=== PATIENT | male | born 1940 | race Caucasian/White ===

== ENCOUNTER 2024-03-11 10:24 | Emergency (ER) | payer MEDICARE, BC ==
[~2024-03-11] VITALS: Ht 170.2 cm; Wt 54.4 kg
[2024-03-11] MEDS: NEOMY/BACITRA/POLYMYXIN B OINT UD PACKET TP ONE (10:59)
[2024-03-11] MEDS ORDERED: NEOMY/BACITRA/POLYMYXIN B OINT UD PACKET TP ONE (10:59)
[2024-03-11 11:23] VITALS: BP 132/68; TEMP 98; O2SAT 98
== END 2024-03-11 11:25 | disposition home or self-care (01) ==
LOC: ER 10:24
DX: S51.011A Laceration without foreign body of right elbow, initial encounter (principal); S51.811A Laceration without foreign body of right forearm, initial encounter; Z60.2 Problems related to living alone; W01.0XXA Fall on same level from slipping, tripping and stumbling without subsequent striking against object, initial encounter; Y93.89 Activity, other specified; Y92.89 Other specified places as the place of occurrence of the external cause; Y99.8 Other external cause status
CPT/HCPCS: A4606; A4663

== ENCOUNTER 2024-03-13 08:01 | Emergency (ER) | payer MEDICARE, BC ==
[~2024-03-13] VITALS: Ht 170.2 cm; Wt 54.4 kg
[2024-03-13 08:05] VITALS: O2SAT 100
== END 2024-03-13 08:23 | disposition home or self-care (01) ==
LOC: ER 08:01
DX: S51.011A Laceration without foreign body of right elbow, initial encounter (principal); W01.0XXA Fall on same level from slipping, tripping and stumbling without subsequent striking against object, initial encounter; Y93.89 Activity, other specified; Y92.89 Other specified places as the place of occurrence of the external cause; Y99.8 Other external cause status
CPT/HCPCS: A4606; A4663